=== PATIENT | female | born 1990 | race Two or more races ===

== ENCOUNTER 2024-08-05 16:48 | Emergency (ER) | payer BC, SELFPAY ==
[2024-08-05 17:52] VITALS: BP 136/88; PULSE 85; RESP 18; TEMP 37.3; O2SAT 95; BMI 30.3
--- NOTE | 2024-08-05 18:05 | PD.EDWOUND ---
ED Wound/Laceration-RME/HPI General Chief Complaint: Wound/Laceration Stated Complaint: LEFT HAND LACERATION Time Seen by Provider: 08/05/24 18:04 Arrival date/time: 08/05/24 16:48 RME / HPI RME / HPI narrative: 34-year-old female patient came in for evaluation regarding puncture wound to the left hand thenar eminence palmar aspect after patient accidentally stabbed herself while using a knife. Patient tetanus vaccination is unknown. Patient is able to bend and extend the fingers without any limitation. No medication was taken prior to arrival. Related Data Home Medications ?Medication ?Instructions ?Recorded ?Confirmed Vitamin * 1 tab PO QDAY #0 tabs 01/01/15 Previous Rx's ?Medication ?Instructions ?Recorded gftlikfr-[id number] 3.5 4 drop otic (ear) QID infection 07/13/17 mg-10,000 unit/mL-1 % ear #10 mL drops,susp ibuprofen 800 mg tablet 800 mg PO TID PRN pain #30 tabs 08/05/24 Allergies Allergy/AdvReac Type Severity Reaction Status Date / Time No Known Allergies Allergy Unverified 08/05/24 18:12 Review of Systems Review of Systems Narrative Review of Systems: Review of system reviewed and within normal limits except mentioned in HPI ED Exam Narrative Physical exam: VITAL SIGNS: Reviewed. GENERAL APPEARANCE: Alert and interactive, follows commands, no acute distress, HEAD AND FACE: Non-traumatic. ENT: PERRL, pink conjunctivitis, eyelid no trauma, Mucous membrane moist. NECK: Supple, nontender, no nuchal rigidity. CHEST: No tenderness, no crepitus, no paradoxical movement, no retractions. MUSCULOSKELETAL: low back nontender, full range of motion. EXTREMITIES:+0.5 cm puncture drawn, left hand, thenar eminence, palmar aspect, nontender, full range of motion of the fingers on time. SKIN: Color pink, dry, no rash, no abrasions, no contusions. LYMPHATICS: Deferred. Course Quality Measures none Orders Category Date Time Status Ibuprofen Tab [Motrin Tab] Med 08/05/24 18:07 Discontinued 800 mg PO X1 ONE TET,DIP/PERT AC (Adult)-Tdap [Boostrix Adult (Tdap) Med 08/05/24 18:07 Discontinued Vacc] 0.5 ml IMI .ONCE ONE Vital Signs Vital signs: Vital Signs Temperature 99.2 F 08/05/24 17:52 Pulse Rate 85 08/05/24 17:52 Respiratory Rate 18 08/05/24 17:52 Blood Pressure 136/88 H 08/05/24 17:52 Pulse Oximetry (%) 95 08/05/24 17:52 Oxygen Delivery Method Room Air 08/05/24 17:52 Wound / Laceration MDM Narrative MDM Narrative:: 34-year-old female patient came in for evaluation regarding puncture wound to the left hand thenar eminence palmar aspect after patient accidentally stabbed herself while using a knife. Patient tetanus vaccination is unknown. Patient is able to bend and extend the fingers without any limitation. No medication was taken prior to arrival. Repair and suturing is not needed at this time Currently is not bleeding Patient was given Boostrix. Patient appears nontoxic and hemodynamically stable. Patient discharged home and instructed to follow-up with primary care provider in 24 to 48 hours. Instructed to return to the emergency department immediately if worsening of symptoms Patient data External records reviewed:: None Clinical information provided by:: patient Social determinants that could affect healthcare access:: none Patient has the following chronic illnesses:: None How is presenting disease/condition affected by chronic disease/condition?: no chronic disease Evaluation data The following diagnostics were reviewed and interpreted by me:: other (specify) (None) Lab and/or radiology exams considered but not ordered:: None Interpretation Summary: None Medications / Prescriptions Medications or Prescriptions considered but not ordered:: None Medication administrations:: Medication Administration History Discontinued Medications Diphtheria/Tetanus/Acell Pertussis (Diphth,Pertuss(Acell),Tet Vac 0.5 Ml Syr- Adult) 0.5 ml IMi .ONCE ONE Stop: 08/05/24 18:08 Ibuprofen (Ibuprofen Tab 400 Mg Tablet) 800 mg PO X1 ONE Stop: 08/05/24 18:08 Boostrix and Motrin Consultations Consultation(s) initiated? (list below): No Diagnosis Wound Differential Diagnosis: laceration, abrasion and avulsion of skin Most likely diagnosis given after review of the tests above:: Puncture wound hand Admission Indicated Admission indicated?: not indicated Admission Request Was there a request for admission?: No Disposition Plan Disposition Plan: Discharge Discharge Attestation Discharge Attestation: The patient and all family members were given an opportunity to ask questions and understood the discharge instructions. Discharge instructions specifically effects, indications for sooner follow up or return to the emergency department, and the expected course of current diagnosis. Patient condition: Stable Discharge Plan Plan Patient Disposition: HOME (Self Care) Discharge Disposition comment: Stable Prescriptions/Referrals Prescriptions/Med Rec: New ibuprofen 800 mg tablet 800 mg PO TID PRN (Reason: pain) Qty: 30 0RF No Action Vitamin * 1 EACH tablet 1 tab PO QDAY Qty: 0 [id number]-[id number] 3.5-10,000-1 mg/mL-unit/mL-% drops,suspension 4 drop BOTH EARS QID Qty: 10 0RF Rx Instructions: Use for 7 days Problem List Clinical Impression: Puncture wound of hand Patient/Caregiver Discharge Instructions Discharge Activity: activity as tolerated Education Materials: ED Puncture Wound (General) Additional Instructions: Thank you for the opportunity for serving you today. You are stable for discharged . You are advised to: Follow-up with your PCP in 1 to 2 days Return to ED for worsening of symptoms Increase oral fluids Take medication as prescribed Daily dressing with triple antibiotic as needed Print Language: Irish Stand Alone Forms: Mary Award Info., Patient Portal Info Letter ISAAC/ELKIN Supervising Physician ISAAC/ELKIN Supervising Physician: MD Fili
[2024-08-05] MEDS: IBUPROFEN TAB 400 MG TABLET 800 MG PO (18:36)
[2024-08-05] MEDS: DIPHTH,PERTUSS(ACELL),TET VAC 0.5 ML SYR- ADULT IMi (18:36)
== END 2024-08-05 19:00 | disposition home or self-care (01) ==
PROVIDERS: Emergency Provider Emergency Medicine
DX: S61.432A Puncture wound without foreign body of left hand, initial encounter (principal); W26.0XXA Contact with knife, initial encounter; Z23 Encounter for immunization
CPT/HCPCS: 90471; 90715; 99282; A9270